=== PATIENT | male | born 1950 | race Caucasian/White ===

== ENCOUNTER → 2017-07-13 | Emergency (ER) | payer OTHER ==
[~2017-07-13] VITALS: Ht 188 cm; Wt 72.1 kg
[~2017-07-13] MED LIST: CATAFLAM50 MG PO; CELEBREX100 MG PO; DESPEC-DM TABL1 EACH PO; DICLOFENAC SODI50 MG PO; DICY20TA PO; DOLOGEN CAPLET1 TAB PO; ENALAPRIL MALEAT5 MG; GABAPENTIN600 MG; GILTUSS LIQUID237 ML PO; GLIPIZIDE10 MG; HYDROXYZINE HCL25 MG; LANTUS100 U/ML SQ; LEVAQUIN750 MG PO; LEVSIN0.125 MG PO; MEDROLPACK PO; METFORMIN HCL500 MG; NORFLEX100 MG PO; NOVOLIN N100 UNITS/ IJ; ORPH100T PO; RELAFEN500 MG PO; TESSALON PERLE100 MG PO; THEOPHYLLINE A200 MG; TUSSI PRES-B L120 M1 PO; ULTRACET PO; VOLTAREN100 GM TP; XOPENEX1.25 MG/0. IH; ZANTAC PO; ZANTAC300 MG PO; ZITHROMAX TRI-500 MG PO; ZITHROMAX500 MG PO; [UNRECOGNIZED DRUG - REMARK]
== END | disposition home or self-care (01) ==
LOC: ER 16:47
DX: C34.91 Malignant neoplasm of unspecified part of right bronchus or lung (principal); M54.6 Pain in thoracic spine

== ENCOUNTER → 2017-08-06 | Emergency (ER) | payer OTHER ==
[~2017-08-06] VITALS: Ht 188 cm; Wt 59.0 kg
== END | disposition home or self-care (01) ==
LOC: ER 14:19
DX: E86.0 Dehydration (principal)

== ENCOUNTER → 2017-08-15 | Emergency (ER) | payer OTHER ==
[~2017-08-15] VITALS: Ht 188 cm; Wt 59.0 kg
[~2017-08-15] MED LIST changes: +CIPRO500 MG PO
== END | disposition left against medical advice (07) ==
LOC: ER 14:59
DX: C34.90 Malignant neoplasm of unspecified part of unspecified bronchus or lung (principal); J44.1 Chronic obstructive pulmonary disease with (acute) exacerbation

== ENCOUNTER 2017-08-17 08:01 | Emergency (ER) | payer OTHER ==
[~2017-08-17] VITALS: Ht 188 cm
[~2017-08-17 08:01] MED LIST changes: -CIPRO500 MG PO
== END 2017-08-17 20:31 | disposition home or self-care (01) ==
LOC: ER 08:01
DX: C34.11 Malignant neoplasm of upper lobe, right bronchus or lung (principal); C79.9 Secondary malignant neoplasm of unspecified site; R06.02 Shortness of breath

== ENCOUNTER 2017-08-30 10:57 | Inpatient (IN) | payer OTHER ==
[~2017-08-30] VITALS: Ht 172.7 cm; Wt 45.4 kg
[2017-09-01] MEDS ORDERED: CIPRO500 MG PO (09:56)
== END 2017-09-01 17:16 | disposition home or self-care (01) | DRG 181 ==
LOC: ER 10:57 → MEDJ 16:00 → SEC-K 16:00 → MEDJ 18:04
PROC: 30233N1 Transfusion of Nonautologous Red Blood Cells into Peripheral Vein, Percutaneous Approach (ICD-10-PCS; principal; 2017-08-30)
PROC: 3E0F7GC Introduction of Other Therapeutic Substance into Respiratory Tract, Via Natural or Artificial Opening (ICD-10-PCS; 2017-08-30)
PROC: B246ZZZ Ultrasonography of Right and Left Heart (ICD-10-PCS; 2017-08-30)
PROC: BB24ZZZ Computerized Tomography (CT Scan) of Bilateral Lungs (ICD-10-PCS; 2017-08-31)
PROC: BW21ZZZ Computerized Tomography (CT Scan) of Abdomen and Pelvis (ICD-10-PCS; 2017-08-31)
DX: C34.31 Malignant neoplasm of lower lobe, right bronchus or lung (principal); N39.0 Urinary tract infection, site not specified; J44.1 Chronic obstructive pulmonary disease with (acute) exacerbation; D63.0 Anemia in neoplastic disease; Z91.19 Patient's noncompliance with other medical treatment and regimen; F17.210 Nicotine dependence, cigarettes, uncomplicated; E11.9 Type 2 diabetes mellitus without complications